=== PATIENT | female | born 1965 | race Caucasian/White ===

== ENCOUNTER → 2017-11-13 | Outpatient (CLI) | payer OTHER ==
[~2017-11-13] MED LIST: ABILIFY5 MG PO; ATIVAN PO; BUMEX1 MG PO; CLINDAMYCIN300 MG PO; DESYREL100 MG PO; FLEXERIL10 MG PO; FOLIC ACID PO; HYDROCODONE BIT1 T11 PO; LEVOTHYROXIN0.075 MG PO; MORPHINE SULFAT30 M2 PO; NEURONTIN300 MG PO; NUCYNTA100 MG PO; OLEPTRO; OPANA10 MG PO; OXYCONTIN10 MG PO; PRISTIQ100 MG PO; PROZAC20 MG PO
[2017-11-13 12:34] LABS: BASO # 0.1 10*3/uL (0.0-0.1); BASO % 0.8 % (0.0-1.0); EOS # 0.1 10*3/uL (0.0-0.4); EOS % 1.1 % (1.0-4.0); HEMATOCRIT 41.9 % (37.0-47.0); HEMOGLOBIN 13.9 g/dl (12.0-16.0); LYMPH % 30.2 % (27.0-41.0); MEAN CELL VOLUME 91.3 fl (81.0-99.0); MEAN CORPUSCULAR HGB 30.3 pg (27.0-31.0); MEAN CORPUSCULAR HGB CONC 33.2 g/dl (33.0-37.0); MEAN PLATELET VOLUME 8.9 fl (9.6-12.3); MONO # 0.5 10*3/uL (0.1-1.0); MONO % 8.3 % (3.0-9.0); NEUT # 3.9 10*3/uL (2.3-7.9); NEUT % 59.4 % (47.0-73.0); PLATELET COUNT AUTOMATED 316 10*3/uL (130-400); RED BLOOD COUNT 4.59 10*6/uL (4.10-5.10); RED CELL DISTRI WIDTH 13.4 % (0-14.5); WHITE BLOOD COUNT 6.5 10*3/uL (4.8-10.8)
[2017-11-13 12:45] LABS: ALBUMIN 4.4 gm/dl (3.1-4.5); BILIRUBIN, DIRECT 0.1 mg/dL (0.0-0.2); CREATININE 1.16 mg/dL (0.55-1.02); POTASSIUM 4.3 mmol/L (3.5-5.1); THYROXINE (T4) TOTAL 10.7 ug/dl (4.8-13.9); TOTAL PROTEIN 8.1 gm/dL (6.4-8.2)
[2017-11-13 12:50] LABS: THYROID STIM HORMONE (HS) 0.741 uIU/ml (0.358-4.75)
== END | disposition home or self-care (01) ==
LOC: LAB 11:45
PROVIDERS: Family Medicine
DX: E03.9 Hypothyroidism, unspecified (principal); R60.9 Edema, unspecified

== ENCOUNTER → 2018-09-24 | Outpatient (CLI) | payer OTHER ==
[2018-09-24 15:40] LABS: BILIRUBIN NEGATIVE (NEGATIVE); BLOOD TRACE-INTACT (NEGATIVE); CLARITY CLEAR (CLEAR); COLOR YELLOW (YELLOW); GLUCOSE NEGATIVE (NEGATIVE); KETONE NEGATIVE (NEGATIVE); LEUKO ESTERASE NEGATIVE (NEGATIVE); NITRITE NEGATIVE (NEGATIVE); SPECIFIC GRAVITY <= 1.005 (1.005-1.030); UROBILINOGEN 0.2 E.U./dl (0.2-1.0)
[2018-09-24 15:42] LABS: BASO # 0.1 10*3/uL (0.0-0.1); EOS # 0.1 10*3/uL (0.0-0.4); EOS % 1.4 % (1.0-4.0); HEMATOCRIT 41.1 % (37.0-47.0); HEMOGLOBIN 13.4 g/dl (12.0-16.0); LYMPH # 2.4 10*3/uL (1.3-4.4); LYMPH % 34.5 % (27.0-41.0); MEAN CELL VOLUME 91.5 fl (81.0-99.0); MEAN CORPUSCULAR HGB 29.8 pg (27.0-31.0); MEAN CORPUSCULAR HGB CONC 32.6 g/dl (33.0-37.0); MEAN PLATELET VOLUME 8.7 fl (9.6-12.3); MONO # 0.7 10*3/uL (0.1-1.0); MONO % 10.5 % (3.0-9.0); NEUT # 3.7 10*3/uL (2.3-7.9); NEUT % 52.2 % (47.0-73.0); PLATELET COUNT AUTOMATED 368 10*3/uL (130-400); RED BLOOD COUNT 4.49 10*6/uL (4.10-5.10); RED CELL DISTRI WIDTH 13.3 % (0-14.5); WHITE BLOOD COUNT 7.1 10*3/uL (4.8-10.8)
[2018-09-24 15:49] LABS: WBC 0-2 wbc/hpf (0-5)
[2018-09-24 16:12] LABS: CREATININE 1.21 mg/dL (0.55-1.02); POTASSIUM 3.6 mmol/L (3.5-5.1); URIC ACID 4.7 mg/dL (2.6-6.0)
[2018-09-24 16:23] LABS: PTH INTACT 52.3 pg/mL (18.5-88.0); VITAMIN D, 25-HYDROXY 20.9 ng/mL (30-100)
[2018-09-25 05:06] LABS: FREE T3 010389 3.2 pg/mL (2.0-4.4)
[2018-09-25 12:06] LABS: URINE FOR EOSINOPHILS 115055 No Eosinophils Seen % (.)
== END | disposition home or self-care (01) ==
LOC: LAB 14:48
PROVIDERS: Internal Medicine Nephrology
DX: I10 Essential (primary) hypertension (principal); E55.9 Vitamin D deficiency, unspecified

== ENCOUNTER → 2019-05-30 | Outpatient (CLI) | payer OTHER | END | disposition home or self-care (01) | LOC: LAB 09:53 | DX: M48.02 Spinal stenosis, cervical region (principal) ==

== ENCOUNTER → 2019-09-21 | Outpatient (CLI) | payer OTHER ==
[2019-09-21 12:54] LABS: BASO # 0.1 10*3/uL (0.0-0.1); BASO % 1.2 % (0.0-1.0); EOS # 0.2 10*3/uL (0.0-0.4); EOS % 2.4 % (1.0-4.0); HEMATOCRIT 44.6 % (37.0-47.0); HEMOGLOBIN 14.4 g/dl (12.0-16.0); LYMPH # 4.6 10*3/uL (1.3-4.4); LYMPH % 50.3 % (27.0-41.0); MEAN CELL VOLUME 89.2 fl (81.0-99.0); MEAN CORPUSCULAR HGB 28.8 pg (27.0-31.0); MEAN CORPUSCULAR HGB CONC 32.3 g/dl (33.0-37.0); MEAN PLATELET VOLUME 8.4 fl (9.6-12.3); MONO % 10.4 % (3.0-9.0); NEUT # 3.3 10*3/uL (2.3-7.9); NEUT % 35.5 % (47.0-73.0); PLATELET COUNT AUTOMATED 375 10*3/uL (130-400); RED CELL DISTRI WIDTH 14.1 % (0-14.5); WHITE BLOOD COUNT 9.2 10*3/uL (4.8-10.8)
[2019-09-21 13:01] LABS: BILIRUBIN NEGATIVE (NEGATIVE); BLOOD NEGATIVE (NEGATIVE); CLARITY CLOUDY (CLEAR); COLOR YELLOW (YELLOW); GLUCOSE NEGATIVE (NEGATIVE); KETONE TRACE (NEGATIVE); LEUKO ESTERASE NEGATIVE (NEGATIVE); NITRITE NEGATIVE (NEGATIVE); SPECIFIC GRAVITY 1.025 (1.005-1.030); UROBILINOGEN 0.2 E.U./dl (0.2-1.0)
[2019-09-21 13:17] LABS: BACTERIA 3+
[2019-09-21 13:18] LABS: EPITHELIAL CELLS 40-50
[2019-09-21 13:24] LABS: ALBUMIN 3.8 gm/dl (3.1-4.5); CREATININE 1.26 mg/dL (0.55-1.02); PHOSPHOROUS 3.9 mg/dL (2.5-4.9); POTASSIUM 4.8 mmol/L (3.5-5.1)
[2019-09-21 13:49] LABS: VITAMIN D, 25-HYDROXY 27.8 ng/mL (30-100)
[2019-09-21 13:50] LABS: PTH INTACT 92.3 pg/mL (18.5-88.0)
== END | disposition home or self-care (01) ==
LOC: LAB 12:33
PROVIDERS: Internal Medicine Nephrology
DX: I12.9 Hypertensive chronic kidney disease with stage 1 through stage 4 chronic kidney disease, or unspecified chronic kidney disease (principal); N18.3 Chronic kidney disease, stage 3 (moderate); R09.89 Other specified symptoms and signs involving the circulatory and respiratory systems; R42 Dizziness and giddiness; R53.83 Other fatigue; R06.02 Shortness of breath

== ENCOUNTER 2019-11-15 12:07 | Inpatient (IN) | payer OTHER ==
[~2019-11-15] VITALS: Ht 165.1 cm; Wt 96.4 kg
[~2019-11-15 12:07] MED LIST changes: -LEVOTHYROXIN0.075 MG PO; +LEVOTHYROXINE100 MC1 PO
[2019-11-15 12:13] VITALS: BP 125/86
[2019-11-15] MEDS ORDERED: XTAMPZA ER18 MG PO (12:29)
[2019-11-15] MEDS ORDERED: METHOCARBAMOL750 M1 PO (12:30)
[2019-11-15] MEDS ORDERED: Percocet 325 MG1 TAB PO (12:30)
[2019-11-15] MEDS ORDERED: ESTRADIOL2 MG PO (12:31)
[2019-11-15] MEDS ORDERED: DILTIAZEM HCL120 M2 PO (12:31)
[2019-11-15] MEDS ORDERED: HYDROXYZINE PAM50 MG PO (12:33)
[2019-11-15] MEDS ORDERED: CYMBALTA60 MG PO (12:34)
[2019-11-15] MEDS ORDERED: LAMICTAL150 MG PO (12:34)
[2019-11-15] MEDS ORDERED: DULOXETINE HCL20 MG PO (12:35)
--- NOTE | 2019-11-15 12:55 | NUR ---
Pt rated back pain as 10/10.
--- NOTE | 2019-11-15 13:55 | NUR ---
Pt stated that the medication was ineffective with her back pain.
[2019-11-15 14:10] VITALS: BP 127/68
--- NOTE | 2019-11-15 14:16 | NUR ---
Time: 1415 A 54 year old FEMALE admitted to 5E under services of KOKI ZARAGOZA DO, Pt. arrived via bed from ER. Chief complaint: BACK PAIN. LEANNA FRANZ
[2019-11-15] MEDS ORDERED: ESTRACE PO (14:31)
[2019-11-15 14:38] VITALS: BP 116/62
[2019-11-15 15:24] LABS: BASO # 0.1 10*3/uL (0.0-0.1); BASO % 1.3 % (0.0-1.0); EOS # 0.1 10*3/uL (0.0-0.4); EOS % 0.5 % (1.0-4.0); HEMATOCRIT 43.3 % (37.0-47.0); HEMOGLOBIN 14.2 g/dl (12.0-16.0); LYMPH % 27.2 % (27.0-41.0); MEAN CORPUSCULAR HGB 29.8 pg (27.0-31.0); MEAN CORPUSCULAR HGB CONC 32.8 g/dl (33.0-37.0); MEAN PLATELET VOLUME 8.6 fl (9.6-12.3); MONO # 0.3 10*3/uL (0.1-1.0); MONO % 3.1 % (3.0-9.0); NEUT # 7.4 10*3/uL (2.3-7.9); NEUT % 67.7 % (47.0-73.0); PLATELET COUNT AUTOMATED 374 10*3/uL (130-400); RED BLOOD COUNT 4.76 10*6/uL (4.10-5.10); RED CELL DISTRI WIDTH 13.7 % (0-14.5); WHITE BLOOD COUNT 10.9 10*3/uL (4.8-10.8)
[2019-11-15 15:41] LABS: ALBUMIN 4.3 gm/dl (3.1-4.5); ALKALINE PHOSPHATASE 96 U/L (45-117); BUN 11 mg/dl (7-24); CHLORIDE 106 mmol/L (98-107); CREATININE 1.14 mg/dL (0.55-1.02); POTASSIUM 4.4 mmol/L (3.5-5.1); SGOT/AST 20 IU/L (3-35); SGPT/ALT 25 U/L (12-78); SODIUM 138 mmol/L (136-145); TOTAL PROTEIN 7.9 gm/dL (6.4-8.2)
--- NOTE | 2019-11-15 19:53 | NUR ---
PT MEDICATED W/NORCO FOR C/O BACK SPASMS 04/27. PT RESTING IN BED W/FAMILY AT BEDSIDE. CALL LIGHT IN REACH.
[2019-11-15 20:00] VITALS: BP 123/69
--- NOTE | 2019-11-15 22:25 | NUR ---
DR. PRITCHARD NOTIFIED PT REQUESTING HOME PAIN MED. OK TO CONTINUE. TO D/C CAT VIERA.
--- NOTE | 2019-11-15 22:44 | NUR ---
PT MEDICATED W/MORPHINE IVP FOR C/O BACK PAIN 07/28. PT TEARFUL. LYING ON RIGHT SIDE IN BED. PT STATES SHE GOES TO A PAIN CLINIC TO REGULATE PAIN MEDS BUT REGIME IS NOT WORKING LATELY. CALL LIGHT IN REACH. WILL MONITOR FOR EFFECTIVENESS.
[2019-11-16] VITALS: BP 115/64
--- NOTE | 2019-11-16 | NUR ---
PT RESTING QUIETLY IN BED. NO S/S OF DISTRESS NOTED. CALL LIGHT IN REACH.
--- NOTE | 2019-11-16 04:18 | NUR ---
PT MEDICATED W/MORPHINE IVP FOR C/O BACK PAIN 05/28. PT RESTING QUIETLY IN BED.
[2019-11-16 06:34] LABS: BASO % 0.2 % (0.0-1.0); HEMATOCRIT 41.7 % (37.0-47.0); HEMOGLOBIN 13.4 g/dl (12.0-16.0); LYMPH # 2.3 10*3/uL (1.3-4.4); LYMPH % 23.5 % (27.0-41.0); MEAN CELL VOLUME 91.4 fl (81.0-99.0); MEAN CORPUSCULAR HGB 29.4 pg (27.0-31.0); MEAN CORPUSCULAR HGB CONC 32.1 g/dl (33.0-37.0); MEAN PLATELET VOLUME 8.9 fl (9.6-12.3); MONO # 0.7 10*3/uL (0.1-1.0); MONO % 7.5 % (3.0-9.0); NEUT # 6.7 10*3/uL (2.3-7.9); NEUT % 68.4 % (47.0-73.0); PLATELET COUNT AUTOMATED 364 10*3/uL (130-400); RED BLOOD COUNT 4.56 10*6/uL (4.10-5.10); RED CELL DISTRI WIDTH 13.9 % (0-14.5); WHITE BLOOD COUNT 9.8 10*3/uL (4.8-10.8)
[2019-11-16 06:42] LABS: ALBUMIN 3.7 gm/dl (3.1-4.5); ALKALINE PHOSPHATASE 82 U/L (45-117); BUN 9 mg/dl (7-24); CHLORIDE 108 mmol/L (98-107); CHOLESTEROL 209 mg/dL (<200); CREATININE 0.96 mg/dL (0.55-1.02); HDL CHOLESTEROL 71 mg/dl (40-60); LDL CHOLESTEROL 121 mg/dL (9-159); PHOSPHOROUS 3.4 mg/dL (2.5-4.9); POTASSIUM 4.4 mmol/L (3.5-5.1); SGOT/AST 15 IU/L (3-35); SGPT/ALT 24 U/L (12-78); SODIUM 142 mmol/L (136-145); TOTAL PROTEIN 7.3 gm/dL (6.4-8.2); TRIGLYCERIDES 86 mg/dl (<150); VLDL CHOLESTEROL 17 mg/dL (6-40)
[2019-11-16 06:47] LABS: THYROID STIM HORMONE (HS) 0.258 uIU/ml (0.358-4.75)
--- NOTE | 2019-11-16 07:30 | NUR ---
VS STABLE. A&O X3, CRISTHIAN, CAPILLARY REFILL <3 SECONDS. + PERIPHERAL PULSES, SKIN WARM DRY AND INTACT. PT COMPLAINS OF PAIN, STATES "THE PAIN IN MY LOWER BACK GOING INTO MY LEGS IS A 5/10. THE LEFT SIDE OF MY LOWER BACK IS WHERE I HAVE SPASMS AND IT'S A 7/10." HEART SOUNDS ARE NORMAL, RATE OF 56, STRONG AND REGULAR. LUNGS ARE CLEAR THROUGHOUT, RATE OF 16 NON LABORED, SPO2 98% ON ROOM AIR. BOWEL SOUNDS X4, ABDOMEN IS SOFT NON DISTENDED AND NON TENDER. LEFT HAND IV SITE IS DRY AND INTACT, NO S/S OF INFECTION. NO OTHER COMPLAINTS AT THIS TIME. WILL CONTINUE TO MONITOR. AMY SANTILLAN RICHIE
[2019-11-16 07:31] LABS: VITAMIN D, 25-HYDROXY 31.1 ng/mL (30-100)
[2019-11-16 08:00] VITALS: BP 126/74; BP 128/50
--- NOTE | 2019-11-16 08:06 | NUR ---
PHYSICAL THERAPY Screen and PT eval received will follow thank you Juana Sinclair PT
--- NOTE | 2019-11-16 08:14 | NUR ---
PT COMPLAINS OF PAIN, "MY LOWER BACK INTO MY LEGS IS STILL A 5/10, THE LEFT SIDE WHERE IT SPASMS WENT UP TO 8/10." GIVEN MORPHINE SULFATE 2MG IVP BY JULIO BOLAND RN. WILL CONTINUE TO [facility]. AMY GRULLON
--- NOTE | 2019-11-16 08:23 | NUR ---
Nursing screen and OT orders received. Will follow up with patient for completion of OT eval. Thank you. Izabella Pereira, OTR/L
--- NOTE | 2019-11-16 09:00 | NUR ---
Powder Mixer in to talk to patient. Patient states lives at HOME with alone. There are no steps in the home. Physician: arlin jacobs Pharmacy: [facility] health services: none Patient's level of ADLs: INDEPENDENT Patient has working utilities: all working DME: none Follow-up physician's appointment after d/c: will be made by ryanne robles nurse director upon discharge Does patient want to access PORTAL?: no Discharge plan discussed with patient, she states she lives at home alone, she is independent in adls and ambulation she states she will return home when medically stable and denies any home needs. BENNIE ZARATE
--- NOTE | 2019-11-16 09:14 | NUR ---
PT STATES "THE PAIN IS DOWN TO A 5/10, I FEEL A LOT BETTER." WILL CONTINUE TO MONITOR. AMY SANTILLAN SPRICHIECC
--- NOTE | 2019-11-16 10:26 | NUR ---
UA REFLEX OBTAINED AND SENT TO LAB. [id number]
--- NOTE | 2019-11-16 10:52 | NUR ---
PHYSICAL THERAPY Dionte completed full report to follow pt moderate complexity level recomend home with HH vs outpatient therapy pending progess with steps. PT to work on tranfers,amb, stairs ed on LB protection Juana Sinclair PT
--- NOTE | 2019-11-16 11:00 | NUR ---
Occupational therapy orders received and OT evaluation completed in full on floor five. Patient precautions include fall risk, low back pain, L sided back spasms, and increased pain. Per OT allie, OT recommends home with family assist PRN with outpatient PT. Patient complexity is low, [id number]. Thank you for the referral. Izabella Pereira, OTR/L
[2019-11-16] MEDS ORDERED: PREDNISONE10 MG PO (11:30)
[2019-11-16 11:56] LABS: BACTERIA TRACE; BILIRUBIN NEGATIVE (NEGATIVE); BLOOD NEGATIVE (NEGATIVE); CLARITY CLEAR (CLEAR); COLOR YELLOW (YELLOW); EPITHELIAL CELLS 0-2; GLUCOSE NEGATIVE (NEGATIVE); KETONE NEGATIVE (NEGATIVE); LEUKO ESTERASE NEGATIVE (NEGATIVE); MUCOUS 1+; NITRITE NEGATIVE (NEGATIVE); RBC 0-2 rbc/hpf (0-2); SPECIFIC GRAVITY 1.015 (1.005-1.030); UROBILINOGEN 0.2 E.U./dl (0.2-1.0); WBC 0-2 wbc/hpf (0-5)
[2019-11-16 12:00] VITALS: BP 122/68
--- NOTE | 2019-11-16 12:50 | NUR ---
Discharge instructions reviewed with patient/family. Patient receptive and verbalizes understanding. Follow-up care arranged. Written instructions given to patient/family. Patient taken by wheelchair to pharmacy to retrieve medications. Discharged via wheelchair, condition stable. All belongings with patient. Lynne Lira [facility]
== END 2019-11-16 12:50 | disposition home or self-care (01) | DRG 552 ==
LOC: ED 12:07 → EDHOLD 13:40 → 5E 13:40
PROVIDERS: Student in an Organized Health Care Education/Training Program; ADMIT Internal Medicine
DX: M51.26 Other intervertebral disc displacement, lumbar region (principal); R73.9 Hyperglycemia, unspecified; D72.829 Elevated white blood cell count, unspecified; F41.9 Anxiety disorder, unspecified; N18.3 Chronic kidney disease, stage 3 (moderate); E03.9 Hypothyroidism, unspecified; M48.02 Spinal stenosis, cervical region; F32.9 Major depressive disorder, single episode, unspecified; E66.9 Obesity, unspecified; G89.29 Other chronic pain; Z88.0 Allergy status to penicillin; Z88.2 Allergy status to sulfonamides; Z98.891 History of uterine scar from previous surgery; Z98.1 Arthrodesis status; Z90.49 Acquired absence of other specified parts of digestive tract; Z90.710 Acquired absence of both cervix and uterus; Z82.49 Family history of ischemic heart disease and other diseases of the circulatory system; Z79.899 Other long term (current) drug therapy; Z79.891 Long term (current) use of opiate analgesic; Z68.35 Body mass index [BMI] 35.0-35.9, adult

== ENCOUNTER → 2023-08-05 | Outpatient (CLI) | payer OTHER ==
[~2023-08-05] MED LIST changes: +CYMBALTA60 MG PO; +DILTIAZEM HCL120 M2 PO; +DULOXETINE HCL20 MG PO; +ESTRACE PO; +ESTRADIOL2 MG PO; +HYDROXYZINE PAM50 MG PO; +LAMICTAL150 MG PO; +METHOCARBAMOL750 M1 PO; +PREDNISONE10 MG PO; +Percocet 325 MG1 TAB PO; +XTAMPZA ER18 MG PO
== END | disposition home or self-care (01) ==
LOC: CT 13:00
PROVIDERS: ATTEND Specialist
DX: M47.812 Spondylosis without myelopathy or radiculopathy, cervical region (principal); M48.02 Spinal stenosis, cervical region